=== PATIENT | male | born 1975 | race Caucasian/White ===

== ENCOUNTER 2022-12-20 09:44 | Day surgery (SDC) | payer OTHER ==
[~2022-12-20] VITALS: Ht 177.8 cm; Wt 105.6 kg
--- NOTE | 2022-12-20 12:02 | NUR ---
12/20/22 1202 FLOR HENDERSON NOTED WHEEZING- WHEN PT COUGHED, WHEEZING CLEARED. HOWEVER, WHEN DR. MCCORMICK CHECKED ON PT PRIOR TO PROCEDURE, HE NOTED WHEEZING AGAIN. ALBUTEROL UPDRAFT WAS GIVEN PRIOR TO PROCEDURE. DR. MCCORMICK WILL USE LIDOCAINE 4% PRIOR TO D/C.
[2022-12-20 13:45] VITALS: BP 125/83
== END 2022-12-20 12:59 | disposition home or self-care (01) ==
LOC: ORSCSDS 09:44
PROVIDERS: Internal Medicine Gastroenterology
PROC: 0DB58ZX Excision of Esophagus, Via Natural or Artificial Opening Endoscopic, Diagnostic (ICD-10-PCS; principal; 2022-12-20 11:15)
DX: R13.10 Dysphagia, unspecified (principal); K20.90 Esophagitis, unspecified without bleeding; K22.2 Esophageal obstruction; K44.9 Diaphragmatic hernia without obstruction or gangrene; F17.290 Nicotine dependence, other tobacco product, uncomplicated; E66.9 Obesity, unspecified; Z68.33 Body mass index [BMI] 33.0-33.9, adult
CPT/HCPCS: 88305; 88312; J2001; J2704; J7120

== ENCOUNTER 2023-04-23 12:43 | Day surgery (SDC) | payer OTHER ==
[~2023-04-23] VITALS: Ht 177.8 cm; Wt 106.8 kg
[2023-04-23] MEDS ORDERED: LOMAIRA8 MG PO (13:07)
[2023-04-23 15:11] VITALS: BP 125/80
--- NOTE | 2023-04-23 15:31 | NUR ---
04/23/23 [facility] LUNGS AUSCULATED AND WHEEZES NOTED IN BASES POSTERIORLY. RN ENCOURAGED PATIENT TO COUGH MULTIPLE TIMES. THE COUGHING CLEARED SOME OF THE WHEEZES BUT NOT ALL. 1355: RN ENCOURAGED PATIENT TO COUGH AGAIN AND THEN AUSCULTATED LUNGS AGAIN. SPO2 STABLE AT 98% BUT PATIENT CONTINUED TO HAVE WHEEZES MOSTLY TO RIGHT LOWER LOBE, BUT SLIGHTLY IN LEFT LOWER LOBE WELL. RN MENTIONED DISCUSSING THIS WITH DR KAUR AND DR MCCORMICK AND POSSIBLY DOING A BREATHING TREATMENT AND PATIENT RESPONDED WITH "NO I DON'T NEED THAT, I DON'T WANT THAT." RN MADE MANAGER GALLERY AWARE OF SITUATION. MANAGER GALLERY COMMUNICATED THE SITUATION TO DR KAUR. PER DR KAUR, PATIENT OK TO DISCHARGE BUT TO BE ENCOURAGED TO GO THE ER IF HE DEVELOPS ANY LUNG ISSUES/SYMPTOMS. RN COMMUNICATED THIS INFORMATION TO THE PATIENT AND EXPLAINED ANY SHORTNESS OF BREATH, WHEEZING, DIFFICULTY BREATHING OR OTHER CONCERNS PATIENT SHOULD GO TO THE ER. PATIENT VERBALIZED UNDERSTANDING.
== END 2023-04-23 14:15 | disposition home or self-care (01) ==
LOC: ORSCSDS 12:43
PROVIDERS: Specialist
PROC: 0DB48ZX Excision of Esophagogastric Junction, Via Natural or Artificial Opening Endoscopic, Diagnostic (ICD-10-PCS; principal; 2023-04-23 14:15)
PROC: 0DB68ZX Excision of Stomach, Via Natural or Artificial Opening Endoscopic, Diagnostic (ICD-10-PCS; principal; 2023-04-23 14:15)
DX: R13.19 Other dysphagia (principal); K21.00 Gastro-esophageal reflux disease with esophagitis, without bleeding; Z87.891 Personal history of nicotine dependence; E66.9 Obesity, unspecified; Z68.33 Body mass index [BMI] 33.0-33.9, adult; K22.10 Ulcer of esophagus without bleeding; K44.9 Diaphragmatic hernia without obstruction or gangrene; Z79.899 Other long term (current) drug therapy
CPT/HCPCS: 88305; 88312; 88342; C1726; J2704; J7120

== ENCOUNTER 2023-08-22 10:12 | Day surgery (SDC) | payer OTHER ==
[~2023-08-22] VITALS: Ht 177.8 cm; Wt 105.6 kg
[~2023-08-22 10:12] MED LIST: LOMAIRA8 MG PO; Lactated Ringer's 1,000 ML IV ONE; PANT40; propofoL 50 ML IV ONE
[2023-08-22] MEDS ORDERED: TROKENDI XR100 MG PO (10:23)
[2023-08-22] MEDS ORDERED: Lactated Ringer's 1,000 ML IV ONE (10:54)
[2023-08-22] MEDS ORDERED: Midazolam HCL 1 MG/ML 5MLVIAL ONE (11:11)
[2023-08-22 12:13] VITALS: BP 96/62
== END 2023-08-22 12:10 | disposition home or self-care (01) ==
LOC: ORSCSDS 10:12
PROVIDERS: Internal Medicine Gastroenterology
PROC: 0D758ZZ Dilation of Esophagus, Via Natural or Artificial Opening Endoscopic (ICD-10-PCS; principal; 2023-08-22 11:30)
DX: K22.2 Esophageal obstruction (principal); Z87.19 Personal history of other diseases of the digestive system; K44.9 Diaphragmatic hernia without obstruction or gangrene; F32.A Depression, unspecified; Z79.899 Other long term (current) drug therapy
CPT/HCPCS: C1726; J2250; J2704; J7120

== ENCOUNTER → 2025-01-31 | Outpatient (CLI) | payer OTHER ==
[~2025-01-31] MED LIST changes: -Lactated Ringer's 1,000 ML IV ONE; +TROKENDI XR100 MG PO; -propofoL 50 ML IV ONE
[2025-01-31 18:59] LABS: Chlamydia Trachomatis Urine NOT DETECTED (NOT DETECT); Neisseria Gonorrhoea Urine NOT DETECTED (NOT DETECT)
== END ==
LOC: LAB SHORT 11:26 → LAB 11:26
PROVIDERS: Emergency Medicine
DX: Z20.2 Contact with and (suspected) exposure to infections with a predominantly sexual mode of transmission (principal)
CPT/HCPCS: 87491; 87591